=== PATIENT | female | born 1930 | race Caucasian/White ===

== ENCOUNTER 2017-08-19 12:49 | Emergency (ER) | payer MEDICARE, MEDICAID ==
[~2017-08-19] VITALS: Ht 167.6 cm; Wt 70.0 kg
[~2017-08-19 12:49] MED LIST: ALBU2.5I NEB; AMPI500C63 PO; ASPI325T OG-TUBE; CEFT1INJ IVPB; D-10TAB3 PO; DUONI NEB; FLOR250C PO; FURO20 PO; HALDOL TOP; HALO50P IM; KLOR20TA6 PO; LISI2.5T3 PO; MAPA325T6 PO; MEMA1TAB2 PO; METR-1 PO; NRSS SQ; VANC500 PO; WATER G-TUBE; [UNRECOGNIZED DRUG - CODE] IV; [UNRECOGNIZED DRUG - CODE] IVPB
[2017-08-19 13:06] VITALS: BP 191/84; PULSE 62; RESP 20; TEMP 98.3; O2SAT 98
[2017-08-19] MEDS ORDERED: TETANUS/DIPHTHERIA TOXOID ADULT 0.5 ML VIAL IM ONE (13:15)
--- NOTE | 2017-08-19 13:19 | PD ---
HPI Chief Complaint: Fall Time Seen by Provider: 13:12 Travel History International Travel<30 days: No Contact w/Intl Traveler<30days: No Traveled to known affect area: No History of Present Illness HPI The patient is a 86-year-old female who presents to the emergency department via EMS from a intermediate after a fall. The patient apparently has a history of dementia, fell earlier today and was noted to have a laceration on the right side of the face with Steri-Strips placed over it, prior to arrival. The patient does have a history of dementia and is a somewhat poor and limited historian. She does complain of facial pain but denies any neck pain, chest pain, shortness of breath, nausea, vomiting, or abdominal pain. According to the med reconciliation list the patient takes aspirin but no other visible anticoagulants or blood thinners. Symptoms are moderate, apparently exacerbated after falling. PFSH Past Medical History Dementia: Yes Diabetes: No Diminished Hearing: No Hypertension: Yes Immunizations Current: No (UNKNOWN) Past Surgical History Appendectomy: Yes Social History Alcohol Use: No Tobacco Use: No Substance Use: No Allergies-Medications (Allergen,Severity, Reaction): Coded Allergies: *MDRO Multi-Drug Resistant Organism (Verified Adverse Reaction, Unknown, ) MRSA PCR screen positive 06/19/15 Reported Meds & Prescriptions Reported Meds & Active Scripts Active Aspirin 325 Mg Tab (Aspirin) 325 Mg Tab 325 Mg OG-TUBE DAILY 30 Days Reported Sodium Chloride 1 Gram Tab 1 Gm PO DAILY Calcium Oyster Shell (Calcium Carbonate) 1,250 Mg Tab 500 Mg PO BID 1,250 mg calcium carbonate (500 mg elemental calcium) Nuedexta 20-10 mg (Dextromethorphan HBr-Quinidine) 20 Mg-10 Mg Cap 1 Cap PO BID Melatonin 5 Mg Tab 6 Mg PO HS Mapap (Acetaminophen) 325 Mg Tab 650 Mg PO Q4H PRN D-1000 Extra Strength (Cholecalciferol) 1,000 Unit Tab 1,000 Units PO DAILY Review of Systems ROS Limitations: Poor Historian Except as stated in HPI: all other systems reviewed are Neg HENT: Positive: Headaches, Other (Patient), No: Neck Pain Cardiovascular: No: Chest Pain or Discomfort Respiratory: No: Shortness of Breath Gastrointestinal: No: Nausea, Vomiting, Abdominal Pain Neurologic: Positive: Other (History of dementia) Physical Exam Narrative GENERAL: Awake, alert, 86-year-old female who appears her stated age and is in no acute respiratory distress. SKIN: Laceration noted to the right frontal facial area just lateral to the orbit. HEAD: Laceration noted to the right frontal facial area just lateral to the orbit with Steri-Strips in place. Small amount of right periorbital ecchymosis. Steri-Strips were removed, 2.5 cm linear laceration. EYES: Pupils equal and round. 2 mm bilateral and reactive. ENT: No nasal bleeding or discharge. Mucous membranes pink and moist. NECK: Trachea midline. No JVD. No tenderness of the cervical vertebrae. CARDIOVASCULAR: Regular rate and rhythm. No murmur appreciated. RESPIRATORY: No accessory muscle use. Clear to auscultation. Breath sounds equal bilaterally. GASTROINTESTINAL: Abdomen soft, non-tender, nondistended. Gastrostomy tube is in place. MUSCULOSKELETAL: Contractures noted to the right hand. Contusion noted to the anterior aspect of the right knee. Contractures noted to the right hand. Limited range of motion lower extremities. NEUROLOGICAL: Awake and alert. No obvious cranial nerve deficits. Responds to name but is unable to tell me the current month or year. Back: Kyphosis noted over the thoracic spine. No tenderness or obvious step- off. No visible sacral decubitus ulcer. PSYCHIATRIC: Appears to have dementia. Data Data Last Documented VS Vital Signs Date Time Temp Pulse Resp B/P (MAP) Pulse Ox O2 Delivery O2 Flow Rate FiO2 08/19/17 15:22 59 20 125/72 (89) 94 Nasal Cannula 2.00 08/19/17 13:[address] Brain W/O Iv Contrast(Rout) (08/19/17 ) Ct Facial Bones W/O Iv Cont (08/19/17 ) Ct Cerv Spine W/O Contrast (08/19/17 ) Tetanus/Diphtheria Tox Adult (Tetanus/Di (08/19/17 13:15) Morphine Inj (Morphine Inj) (08/19/17 14:00) Ondansetron Inj (Zofran Inj) (08/19/17 14:00) Lorazepam Inj (Ativan Inj) (08/19/17 14:00) Sodium Chlorid 0.9% 500 Ml Inj (Ns 500 M (08/19/17 14:00) Lidocaine Pf 1% Inj (Xylocaine-Mpf 1% In (08/19/17 16:00) MDM Medical Decision Making Medical Screen Exam Complete: Yes Emergency Medical Condition: Yes Medical Record Reviewed: Yes Interpretation(s) Last Impressions Maxillofacial CT 08/19/17 0000 Signed Impressions: Service Date/Time: Saturday, August 19, 2017 14:18 - CONCLUSION: 1. 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 2. No acute osseous injury. 3. De Leon -chronic sinusitis with a possible superimposed acute component in the right maxillary antra Andrés Griffith MD Head CT 08/19/17 0000 Signed Impressions: Service Date/Time: Saturday, August 19, 2017 14:18 - CONCLUSION: Negative for acute process. Hal Palm MD FACR Cervical Spine CT 08/19/17 0000 Signed Impressions: Service Date/Time: Saturday, August 19, 2017 14:18 - CONCLUSION: 1. No acute fracture. 2. Exaggerated kyphotic curvature with multilevel degenerative disc disease. Grade 1 retrolisthesis of C3 on 4 with a grade 1 anterolisthesis of C6 on 7 and C7 on T1. 3. Multilevel degenerative disc disease with some uncovertebral ridging encroaches on the intervertebral space at C3-4 and the right lateral recess at C4-5. May be some early cord compromise rightward at the C4-5 level. 4. Foraminal narrowing which may be severe enough to compromise bilateral C4 and right C5 nerve root. 5. Approximately 8 mm in posterior subluxation of the right body of C1 on the lateral mass of C2. This may be due to the patient's head position, however. 6. 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 Andrés Griffith MD Differential Diagnosis Differential diagnosis includes mechanical fall, closed head injury, intracranial hemorrhage, skull fracture, laceration, facial fracture, cervical fracture, poor mobility. Narrative Course CT of the brain, facial bones, and cervical spine was ordered. The patient's tetanus shot was updated. CT the brain is negative for hemorrhage. CT the patient bones reveals no fracture. CT of the cervical spine reveals severe degenerative changes but no acute fracture. The patient's laceration was repaired by the mid-level provider, please refer to the procedure note. The patient did have to be sedated for CT with morphine and Ativan. The patient will be discharged back to the intermediate when she is more awake alert and oriented. Suture removal in 5-7 days. Diagnosis Primary Impression: Closed head injury Qualified Codes: S09.90XA - Unspecified injury of head, initial encounter Additional Impression: Laceration of face Qualified Codes: S01.81XA - Laceration without foreign body of other part of head, initial encounter Patient Instructions: General Instructions Additional Instructions: Suture removal in 5-7 days. Ice to the face. Wound care instructions. Please provide the patient a copy of her CT results prior to discharge back to the intermediate. Med/Other Pt SpecificInfo: No Change to Meds Disposition: 03 DISCHARGE TO SNF (Discharge back to intermediate) Condition: Stable Felipe Tony MD Aug 19, 2017 13:19
[2017-08-19] MEDS ORDERED: MELA5 PO (13:44)
[2017-08-19] MEDS ORDERED: NUED20CA PO (13:44)
[2017-08-19] MEDS ORDERED: SODI1TAB PO (13:44)
[2017-08-19] MEDS ORDERED: CALC500T8 PO (13:44)
[2017-08-19] MEDS ORDERED: ONDANSETRON HCL 4 MG/2 ML VIAL IV PUSH ONE (14:00)
[2017-08-19] MEDS ORDERED: LORazepam 2 MG/ML VIAL IV PUSH ONE (14:00)
[2017-08-19] MEDS ORDERED: MORPHINE SULFATE 4 MG/ML INJ IV PUSH ONE (14:00)
[2017-08-19] MEDS ORDERED: SODIUM CHLORID 0.9% 500 ML INJ 500 ML IV ONE (14:00)
--- NOTE | 2017-08-19 14:29 | RADRPT ---
EXAM DATE/TIME: 08/19/2017 14:18 [facility] COMPARISON: CT BRAIN W/O CONTRAST, June 19, 2015, 15:08. INDICATIONS : Patient found on floor RADIATION DOSE: 56.35 CTDIvol (mGy) MEDICAL HISTORY : Dementia. Hypertension. SURGICAL HISTORY : Appendectomy. ENCOUNTER: Initial ACUITY: 1 day PAIN SCALE: 3/10 LOCATION: cranial TECHNIQUE: Multiple contiguous axial images were obtained of the head. Using automated exposure control and adj ustment of the mA and/or kV according to patient size, radiation dose was kept as low as reasonably a chievable to obtain optimal diagnostic quality images. DICOM format image data is available electro nically for review and comparison. FINDINGS: There is marked central and cortical atrophy with dilatation of ventricular and sulcal spaces. There is no parenchymal hemorrhage, acute infarction or mass lesion identified. There are no extra-a xial fluid collections appreciated. The posterior fossa is unremarkable with midline fourth ventricl e. The portion of the orbits and paranasal sinuses visualized are unremarkable. CONCLUSION: Negative for acute process. Hal Palm MD FACR on August 19, 2017 at 14:26 Board Certified Radiologist. This report was verified electronically.
[2017-08-19 14:32] VITALS: BP 168/87; PULSE 67; RESP 18; O2SAT 98
--- NOTE | 2017-08-19 15:04 | RADRPT ---
EXAM DATE/TIME: 08/19/2017 14:18 [facility] COMPARISON: No previous studies available for comparison. INDICATIONS : Found on floor,laceration above right eye. RADIATION DOSE: 20.04 CTDIvol (mGy) MEDICAL HISTORY : Dementia. Hypertension. SURGICAL HISTORY : Appendectomy. ENCOUNTER: Initial ACUITY: 1 day PAIN SCALE: Non-responsive LOCATION: neck TECHNIQUE: Volumetric scanning of the cervical spine was performed. Multiplanar reconstructions in the sagittal, coronal and oblique axial planes were performed. Using automated exposure control and adjustment o f the mA and/or kV according to patient size, radiation dose was kept as low as reasonably achievable to obtain optimal diagnostic quality images. DICOM format image data is available electronically f or review and comparison. FINDINGS: Sagittal and coronal reconstructions show exaggeration of the kyphotic curvature. Grade 1 retrolisthe sis of C3 on 4 with a grade 1 anterolisthesis C6 on 7 and C7 on T1. There is some posterior subluxati on of the right lateral mass of C1 on the articulating plate of C2 which may be due to the patient's head position. Otherwise, vertebral body heights are maintained without acute fracture. There is some bony fusion of the posterior elements rightward at C3-4. Ascending thoracic aorta/proximal arch is p rominent at 4.4 cm C2-C3: Left posterior spurring. Spinal canal and neural foramina are patent. C3-C4: Uncovertebral ridging encroaches on the intervertebral space without spinal stenosis. Narrowing of amna th neural foramina which may compromise the exiting C4 nerve roots C4-C5: Uncovertebral ridging most prominent right posterior and lateral with narrowing of the right neural f oramina which almost certainly compromises lateral recess and the right C5 nerve root. C5-C6: The bony spinal canal is normal in size. No evidence of disc bulge or herniation. The neural forami na are bilaterally patent. C6-C7: The bony spinal canal is normal in size. No evidence of disc bulge or herniation. The neural forami na are bilaterally patent. C7-T1: The bony spinal canal is normal in size. No evidence of disc bulge or herniation. The neural forami na are bilaterally patent. CONCLUSION: 1. No acute fracture. 2. Exaggerated kyphotic curvature with multilevel degenerative disc disease. Grade 1 retrolisthesis o f C3 on 4 with a grade 1 anterolisthesis of C6 on 7 and C7 on T1. 3. Multilevel degenerative disc disease with some uncovertebral ridging encroaches on the interverteb ral space at C3-4 and the right lateral recess at C4-5. May be some early cord compromise rightward a t the C4-5 level. 4. Foraminal narrowing which may be severe enough to compromise bilateral C4 and right C5 nerve root. 5. Approximately 8 mm in posterior subluxation of the right body of C1 on the lateral mass of C2. Thi s may be due to the patient's head position, however. 6. 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 Andrés Griffith MD on August 19, 2017 at 14:47 Board Certified Radiologist. This report was verified electronically.
--- NOTE | 2017-08-19 15:08 | RADRPT ---
EXAM DATE/TIME: 08/19/2017 14:18 . [facility] COMPARISON: No previous studies available for comparison. INDICATIONS : Patient found on floor RADIATION DOSE: 6.7 CTDIvol (mGy) MEDICAL HISTORY : Dementia. Hypertension. SURGICAL HISTORY : Appendectomy. ENCOUNTER: Initial ACUITY: 1 day PAIN SCORE: Non-responsive LOCATION: facial TECHNIQUE: Volumetric scanning of the facial bones was performed. Using automated exposure control and adjustme nt of the mA and/or kV according to patient size, radiation dose was kept as low as reasonably achiev able to obtain optimal diagnostic quality images. DICOM format image data is available electronicall y for review and comparison. FINDINGS: ORBITS: The orbital and infraorbital osseous structures are intact. The retroconal structures have a normal configuration. No radiopaque foreign bodies are seen. NASAL BONE: The nasal bone and maxillary spine are intact ZYGOMATIC ARCHES: Symmetric without evidence of fracture. SINUSES: Pansinusitis with mucoperiosteal thickening throughout. In addition, air fluid level in the right max illary antra possibly representing a superimposed acute component. NASAL CAVITY: The nasal septum is intact and midline. The lacrimal ducts are intact. SOFT TISSUES: No radiopaque foreign bodies seen. No soft-tissue swelling is seen. INTRACRANIAL: No intracranial air seen. Hyperostosis frontalis internus CRIBIFORM PLATE: Grossly intact. CONCLUSION: 1. 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 2. No acute osseous injury. 3. De Leon -chronic sinusitis with a possible superimposed acute component in the right maxillary antra Andrés Griffith MD on August 19, 2017 at 15:02 Board Certified Radiologist. This report was verified electronically.
[2017-08-19 15:09] VITALS: O2SAT 98
[2017-08-19 15:22] VITALS: BP 125/72; PULSE 59; RESP 20; O2SAT 94
[2017-08-19] MEDS ORDERED: LIDOCAINE HCL 1% PF 30 ML VIAL INFIL ONE (16:00)
--- NOTE | 2017-08-19 16:17 | PD ---
Physical Exam Time Seen by Provider: 16:15 Narrative I repaired the patient's laceration to the right lateral eyebrow area. Data Data Last Documented VS Vital Signs Date Time Temp Pulse Resp B/P (MAP) Pulse Ox O2 Delivery O2 Flow Rate FiO2 08/19/17 15:22 59 20 125/72 (89) 94 Nasal Cannula 2.00 08/19/17 13:[address] Brain W/O Iv Contrast(Rout) (08/19/17 ) Ct Facial Bones W/O Iv Cont (08/19/17 ) Ct Cerv Spine W/O Contrast (08/19/17 ) Tetanus/Diphtheria Tox Adult (Tetanus/Di (08/19/17 13:15) Morphine Inj (Morphine Inj) (08/19/17 14:00) Ondansetron Inj (Zofran Inj) (08/19/17 14:00) Lorazepam Inj (Ativan Inj) (08/19/17 14:00) Sodium Chlorid 0.9% 500 Ml Inj (Ns 500 M (08/19/17 14:00) Lidocaine Pf 1% Inj (Xylocaine-Mpf 1% In (08/19/17 16:00) MDM Supervised Visit with PAZ: No Narrative Course I repaired the patient's laceration to the right lateral eyebrow area. See my procedure note for laceration repair. Procedures Procedure Narrative LACERATION LOCATION: Right lateral eyebrow LENGTH: 2 cm NUMBER OF STITCHES/LEONILA: 5 simple interrupted suture REPAIR: The area of the laceration was prepped with Betadine and sterilely draped. The laceration was infiltrated with 1% lidocaine. The wound was copiously irrigated and explored without evidence of foreign body, tendon injury or neurovascular injury. The wound was closed using 5-0 Prolene. This was a single layer repair. A sterile dressing was applied. The patient was advised to keep the dressing clean and dry. Patient tolerated the procedure well. Diagnosis Primary Impression: Closed head injury Qualified Codes: S09.90XA - Unspecified injury of head, initial encounter Additional Impression: Laceration of face Qualified Codes: S01.81XA - Laceration without foreign body of other part of head, initial encounter Patient Instructions: General Instructions Additional Instruction: Suture removal in 5-7 days. Ice to the face. Wound care instructions. Please provide the patient a copy of her CT results prior to discharge back to the residential. Disposition: 03 DISCHARGE TO SNF Condition: Stable Rena Ortiz Aug 19, 2017 16:17
[2017-08-19 17:15] VITALS: BP 139/76; PULSE 61; RESP 20; O2SAT 94
== END 2017-08-19 17:42 ==
LOC: NEPD 12:49
DX: S09.90XA Unspecified injury of head, initial encounter (principal); S01.111A Laceration without foreign body of right eyelid and periocular area, initial encounter; F03.90 Unspecified dementia, unspecified severity, without behavioral disturbance, psychotic disturbance, mood disturbance, and anxiety; I10 Essential (primary) hypertension; W18.30XA Fall on same level, unspecified, initial encounter; Y92.129 Unspecified place in nursing home as the place of occurrence of the external cause; Z79.82 Long term (current) use of aspirin; Z23 Encounter for immunization
CPT/HCPCS: 12011; 70450; 70486; 72125; 90471; 90714; 96361; 96374; 96375; 99284; J2060; J2270; J2405; J7040